=== PATIENT | male | born 1945 | race Caucasian/White ===

== ENCOUNTER 2020-04-03 08:10 | Day surgery (SDC) | payer MEDICARE, OTHER ==
[~2020-04-03] VITALS: Ht 170.2 cm; Wt 80.0 kg
[2020-04-03 08:26] VITALS: BP 137/79
[2020-04-03] MEDS ORDERED: SODIUM CHLORIDE 0.9% 1,000 ML IV SCH ×2 (08:27→10:24)
[2020-04-03] MEDS ORDERED: POTA99TA24 PO (08:44)
[2020-04-03] MEDS ORDERED: ARGI1000 PO (08:44)
[2020-04-03] MEDS ORDERED: PRAS1TAB3 PO (08:44)
[2020-04-03] MEDS ORDERED: MULT-658 PO (08:44)
[2020-04-03] MEDS ORDERED: METF10007 PO (08:44)
[2020-04-03] MEDS ORDERED: LACT1CAP35 PO (08:44)
[2020-04-03] MEDS ORDERED: UBID100C24 PO (08:44)
[2020-04-03] MEDS ORDERED: SIMV40TA20 PO (08:44)
[2020-04-03] MEDS ORDERED: VITA1CAP7 PO (08:44)
[2020-04-03] MEDS ORDERED: LEVO500C3 PO (08:44)
[2020-04-03] MEDS ORDERED: FOLI0.8C PO (08:44)
[2020-04-03] MEDS ORDERED: OMEG1CAP23 PO (08:44)
[2020-04-03] MEDS ORDERED: LISI1TAB19 PO (08:44)
[2020-04-03] MEDS ORDERED: MAGN400T36 PO (08:44)
[2020-04-03] MEDS ORDERED: TEST1.25 TD (08:44)
[2020-04-03 09:00] LABS: BASOPHILS # (AUTO) 0.11 x10^3/uL (0-0.1); BASOPHILS % (AUTO) 2 % (0-1); EOSINOPHILS # (AUTO) 0.21 x10^3/uL (0-0.4); EOSINOPHILS % (AUTO) 3 % (1-7); LYMPHOCYTES # (AUTO) 1.62 x10^3/uL (1-3.4); LYMPHOCYTES % (AUTO) 22 % (22-44); MD NO; MEAN CORPUSCULAR HEMOGLOBIN 32.5 pg (27.5-34.5); MEAN CORPUSCULAR HGB CONC 33.6 g/dL (33.2-36.2); MEAN CORPUSCULAR VOLUME 96.8 fL (81-97); MEAN PLATELET VOLUME 7.7 fL (7.4-10.4); MONOCYTES % (AUTO) 8 % (2-9); NEUTROPHILS # (AUTO) 4.83 x10^3/uL (1.8-6.8); NEUTROPHILS % (AUTO) 66 % (42-75); PLATELET COUNT 296 x10^3/uL (130-400); RED BLOOD COUNT 4.74 x10^6/uL (4.38-5.82); RED CELL DISTRIBUTION WIDTH 13.3 % (9.4-14.8)
[2020-04-03] MEDS ORDERED: PLEASE ENTER ALLERGIES MC SCH (09:00)
[2020-04-03 09:08] LABS: ANION GAP 9 mmol/L (5-15); CALCIUM 8.9 mg/dL (8.5-10.1); CHLORIDE 110 mmol/L (98-107); CREATININE 0.86 mg/dL (0.7-1.3)
[2020-04-03] MEDS ORDERED: FENTANYL PF 100 MCG/2ML ONE (09:22)
[2020-04-03] MEDS ORDERED: TICAGRELOR 90 MG TABLET ONE (09:22)
[2020-04-03] MEDS ORDERED: MIDAZOLAM 1 MG/ML, 5ML ONE (09:22)
[2020-04-03] MEDS ORDERED: BIVALIRUDIN 250 MG ONE (09:23)
[2020-04-03] MEDS ORDERED: HEPARIN 1,000 UNITS/ML, 10ML ONE (09:23)
[2020-04-03] MEDS ORDERED: VERAPAMIL 2.5 MG/ML, 2ML ONE (09:23)
[2020-04-03] MEDS ORDERED: LIDOCAINE-MPF 1%, 5ML ONE (09:23)
== END 2020-04-03 12:53 | disposition home or self-care (01) ==
LOC: CACL 08:10
PROVIDERS: ATTEND Internal Medicine Cardiovascular Disease
DX: I35.0 Nonrheumatic aortic (valve) stenosis (principal); I10 Essential (primary) hypertension; E11.9 Type 2 diabetes mellitus without complications; E78.2 Mixed hyperlipidemia; Z79.84 Long term (current) use of oral hypoglycemic drugs; Z79.899 Other long term (current) drug therapy; Z85.46 Personal history of malignant neoplasm of prostate; Z87.891 Personal history of nicotine dependence; Z91.030 Bee allergy status; Z90.49 Acquired absence of other specified parts of digestive tract; Z90.79 Acquired absence of other genital organ(s); Z82.49 Family history of ischemic heart disease and other diseases of the circulatory system
CPT/HCPCS: 36415; 80048; 85025; 93454; 99156; C1769; C1894; J1644; J2250; J3010; Q9967; J0583

== ENCOUNTER → 2020-04-09 | Outpatient (CLI) | payer MEDICARE, OTHER ==
[~2020-04-09] MED LIST: ARGI1000 PO; FOLI0.8C PO; LACT1CAP35 PO; LEVO500C3 PO; LISI1TAB19 PO; MAGN400T36 PO; METF10007 PO; MULT-658 PO; OMEG1CAP23 PO; POTA99TA24 PO; PRAS1TAB3 PO; SIMV40TA20 PO; TEST1.25 TD; UBID100C24 PO; VISIPAQUE 320 MG/ML, 150ML BOTTLE ONE; VITA1CAP7 PO
== END | disposition home or self-care (01) ==
LOC: CVU 09:34
PROVIDERS: ATTEND Internal Medicine Cardiovascular Disease
DX: I65.23 Occlusion and stenosis of bilateral carotid arteries (principal); I71.2 Thoracic aortic aneurysm, without rupture; I25.10 Atherosclerotic heart disease of native coronary artery without angina pectoris; I35.8 Other nonrheumatic aortic valve disorders; K80.20 Calculus of gallbladder without cholecystitis without obstruction; M47.817 Spondylosis without myelopathy or radiculopathy, lumbosacral region; M41.86 Other forms of scoliosis, lumbar region; Q25.49 Other congenital malformations of aorta
CPT/HCPCS: 71275; 74174; 93880; Q9967

== ENCOUNTER 2020-04-30 19:29 | Emergency (ER) | payer MEDICARE, OTHER ==
[~2020-04-30] VITALS: Ht 170.2 cm; Wt 77.2 kg
[~2020-04-30 19:29] MED LIST changes: +ASPI81TA45 PO; +CLOP75TA PO; -VISIPAQUE 320 MG/ML, 150ML BOTTLE ONE
[2020-04-30] MEDS ORDERED: LIDOCAINE 1%-EPI 1:100K, 20ML ONE (19:44)
--- NOTE | 2020-04-30 19:53 | NUR ---
ERMD AT BEDSIDE FOR ASSESSMENT.
[2020-04-30] MEDS ORDERED: SILVER NITRATE STICK TP ONE (19:56)
[2020-04-30] MEDS ORDERED: TRANEXAMIC ACID 100 MG/ML, 10ML ONE (20:18)
[2020-04-30] MEDS ORDERED: TRANEXAMIC ACID 100 MG/ML, 10ML TP ONE (20:30)
--- NOTE | 2020-04-30 20:49 | NUR ---
REPORT GIVEN TO MERCEDES STRAUSS.
[2020-04-30 20:58] VITALS: BP 136/77
--- NOTE | 2020-04-30 20:58 | NUR ---
Pt alert and resting on gurney. ERP at bedside for re-eval. VSS.
--- NOTE | 2020-04-30 21:21 | NUR ---
Pt d/c'd to home care. Pt alert, oriented and in NAD. Nose bleed has stopped. Pt educated on home care, OTC meds and follow-up. Pt VU. Pt ambulated out of ER.
== END 2020-04-30 21:23 | disposition home or self-care (01) ==
LOC: ED 21:14
DX: R04.0 Epistaxis (principal); Z95.0 Presence of cardiac pacemaker
CPT/HCPCS: 30901; 99284

== ENCOUNTER → 2020-05-08 | Outpatient (CLI) | payer MEDICARE, OTHER | END | disposition home or self-care (01) | LOC: CFH 09:58 | PROVIDERS: ATTEND Internal Medicine Cardiovascular Disease | DX: I11.9 Hypertensive heart disease without heart failure (principal); E78.5 Hyperlipidemia, unspecified; I65.29 Occlusion and stenosis of unspecified carotid artery | CPT/HCPCS: 93306 ==